=== PATIENT | male | born 1935 | race Caucasian/White ===

== ENCOUNTER 2019-12-16 19:13 | Emergency (ER) | payer OTHER, MEDICARE ==
[~2019-12-16] VITALS: Ht 177.8 cm; Wt 83.9 kg
[~2019-12-16 19:13] MED LIST: ACET325 PO; ALBU90OI INH; AMIO200 PO; ASCO500 PO; ASPI325; ASPI325 PO; ASPI81CH PO; BUPR150ER PO; BUPR75 PO; CIPR750 PO; Crutch1 EACH MISC; DAPTOMYCIN IV; DIGO.125 PO; FERR325 PO; HYDACE5 PO; LISI20 PO; LISI5 PO; METO50 PO; MIRT30 PO; MULVITMIND PO; OXYC5 PO; PRAZ2 PO; Percocet 5-3251 EACH PO; SALS500; SALS750 PO; SENN187 PO; SIMV10 PO; WHEELCHAIR USE; ZOLP10 PO
== END 2019-12-16 20:50 | disposition home or self-care (01) ==
LOC: ER 19:13
DX: S61.012A Laceration without foreign body of left thumb without damage to nail, initial encounter (principal); F17.200 Nicotine dependence, unspecified, uncomplicated; Z79.82 Long term (current) use of aspirin; Z79.899 Other long term (current) drug therapy; W26.0XXA Contact with knife, initial encounter
CPT/HCPCS: 99282

== ENCOUNTER 2021-08-29 09:01 | Emergency (ER) | payer OTHER ==
[~2021-08-29] VITALS: Ht 177.8 cm; Wt 81.7 kg
[2021-08-29 09:47] LABS: BASOPHILS ABSOLUTE AUTO 0.08 K/mm3 (0.00-0.23); BASOPHILS PERCENT AUTO 1 % (0-2); EOSINOPHILS ABSOLUTE AUTO 0.61 K/mm3 (0.00-0.68); EOSINOPHILS PERCENT AUTO 8 % (0-6); Hematocrit 32.1 % (37.0-53.0); Hemoglobin 10.3 g/dL (13.5-17.5); IMMATURE GRAN ABSOLUTE AUTO 0.02 K/mm3 (0.00-0.10); IMMATURE GRAN PERCENT AUTO 0 % (0-1); LYMPHOCYTES ABSOLUTE AUTO 1.37 K/mm3 (0.84-5.20); LYMPHOCYTES PERCENT AUTO 19 % (21-46); MONOCYTES ABSOLUTE AUTO 0.83 K/mm3 (0.16-1.47); MONOCYTES PERCENT AUTO 11 % (4-13); Mean Corpuscular HGB 32.1 pg (26.0-34.0); Mean Corpuscular HGB Conc 32.1 g/dL (31.5-36.5); Mean Corpuscular Volume 100 fL (80-100); Mean Platelet Volume 10.2 fL (9.1-12.4); NEUTROPHILS ABSOLUTE AUTO 4.42 K/mm3 (1.96-9.15); NEUTROPHILS PERCENT AUTO 60 % (41-73); Platelet Count 173 K/mm3 (150-400); RDW Coefficient Variation 13.9 % (11.7-14.2); Red Blood Cell Count 3.21 M/mm3 (4.30-5.90); White Blood Cell Count 7.33 K/mm3 (4.00-11.30)
[2021-08-29 09:55] LABS: Albumin, Blood 3.7 g/dL (3.4-5.0); Albumin/Globulin Ratio 0.9 (0.8-1.8); Bilirubin, Total 0.9 mg/dL (0.1-1.0); Bun/Creatinine Ratio 19.1 (12.0-20.0); Calcium, Blood 9.1 mg/dL (8.5-10.1); Creatinine, Blood 1.31 mg/dL (0.60-1.20); Globulin, Blood 4.1 g/dL (2.2-4.0); Potassium, Blood 3.8 mmol/L (3.5-5.5); Total Protein, Blood 7.8 g/dL (6.4-8.2)
[2021-08-29] MEDS ORDERED: AMLO5 PO (10:38)
[2021-08-29] MEDS ORDERED: DOCU100 PO (10:38)
[2021-08-29] MEDS ORDERED: CLOP75 PO (10:38)
[2021-08-29] MEDS ORDERED: DOXY100 PO (10:38)
[2021-08-29] MEDS ORDERED: Bisoprolol Fumar5 MG PO (10:38)
[2021-08-29] MEDS ORDERED: FINA5 (10:39)
[2021-08-29] MEDS ORDERED: LIDO700A20 TOP (10:39)
[2021-08-29] MEDS ORDERED: FISH OIL 1,2001 EAC7 PO (10:39)
[2021-08-29] MEDS ORDERED: MELA3 PO (10:40)
[2021-08-29] MEDS ORDERED: TAMS.4ER PO (10:40)
[2021-08-29] MEDS ORDERED: LISI5 PO (10:40)
[2021-08-29] MEDS ORDERED: ALBU90OI INH (12:37)
== END 2021-08-29 12:46 | disposition home or self-care (01) ==
LOC: ER 09:01
PROVIDERS: Student in an Organized Health Care Education/Training Program
DX: R07.9 Chest pain, unspecified (principal); R06.02 Shortness of breath; R06.2 Wheezing; R91.8 Other nonspecific abnormal finding of lung field; F17.210 Nicotine dependence, cigarettes, uncomplicated
CPT/HCPCS: 36415; 71045; 80053; 83880; 84484; 85025; 93005; 93010; 99284-25

== ENCOUNTER 2021-10-02 12:24 | Day surgery (SDC) | payer OTHER ==
[~2021-10-02] VITALS: Ht 177.8 cm; Wt 83.1 kg
[~2021-10-02 12:24] MED LIST changes: +AMLO5 PO; +Bisoprolol Fumar5 MG PO; +CEFD300 PO; +CLOP75 PO; +DELTASONE20 MG PO; +DOCU100 PO; +DOXY100 PO; +FINA5 PO; +FISH OIL 1,2001 EAC7 PO; +GUAI600T33 PO; +LIDO700A20 TOP; +MELA3 PO; +TAMS.4ER PO
--- NOTE | 2021-10-02 14:52 | NUR ---
10/02/21 1452 Doreen Ortega PT STATED UNDERSTANDING WITH DISCHARGE INSTRUCTIONS. PT STATES HE IS READY TO GO HOME.
[2021-10-06] MEDS ORDERED: ACETAMINOPHEN500 MG PO (10:42)
[2021-10-06] MEDS ORDERED: Roxicodone5 MG PO (10:42)
== END 2021-10-02 14:57 | disposition home or self-care (01) ==
LOC: ORSCSDS 12:24
PROVIDERS: Ophthalmology
PROC: 08RK3JZ Replacement of Left Lens with Synthetic Substitute, Percutaneous Approach (ICD-10-PCS; principal; 2021-10-02 14:15)
DX: H25.12 Age-related nuclear cataract, left eye (principal); H21.81 Floppy iris syndrome; I48.91 Unspecified atrial fibrillation; J61 Pneumoconiosis due to asbestos and other mineral fibers; I25.10 Atherosclerotic heart disease of native coronary artery without angina pectoris; F32.A Depression, unspecified; F43.10 Post-traumatic stress disorder, unspecified; E78.5 Hyperlipidemia, unspecified; I10 Essential (primary) hypertension; G47.33 Obstructive sleep apnea (adult) (pediatric); I73.9 Peripheral vascular disease, unspecified; Z86.73 Personal history of transient ischemic attack (TIA), and cerebral infarction without residual deficits; Z79.01 Long term (current) use of anticoagulants; Z79.899 Other long term (current) drug therapy
CPT/HCPCS: J2001; J2250; J3010; J3301; J7040; V2632

== ENCOUNTER 2021-11-24 17:25 | Emergency (ER) | payer OTHER ==
[~2021-11-24] VITALS: Ht 177.8 cm; Wt 79.4 kg
[~2021-11-24 17:25] MED LIST changes: +ACETAMINOPHEN500 MG PO; +Roxicodone5 MG PO
[2021-11-24 18:04] LABS: BASOPHILS ABSOLUTE AUTO 0.07 K/mm3 (0.00-0.23); BASOPHILS PERCENT AUTO 1 % (0-2); EOSINOPHILS ABSOLUTE AUTO 0.08 K/mm3 (0.00-0.68); EOSINOPHILS PERCENT AUTO 1 % (0-6); Hematocrit 33.7 % (37.0-53.0); Hemoglobin 10.9 g/dL (13.5-17.5); IMMATURE GRAN ABSOLUTE AUTO 0.02 K/mm3 (0.00-0.10); IMMATURE GRAN PERCENT AUTO 0 % (0-1); LYMPHOCYTES ABSOLUTE AUTO 0.86 K/mm3 (0.84-5.20); LYMPHOCYTES PERCENT AUTO 10 % (21-46); MONOCYTES ABSOLUTE AUTO 0.75 K/mm3 (0.16-1.47); MONOCYTES PERCENT AUTO 9 % (4-13); Mean Corpuscular HGB 30.6 pg (26.0-34.0); Mean Corpuscular HGB Conc 32.3 g/dL (31.5-36.5); Mean Corpuscular Volume 95 fL (80-100); NEUTROPHILS ABSOLUTE AUTO 6.73 K/mm3 (1.96-9.15); NEUTROPHILS PERCENT AUTO 79 % (41-73); Platelet Count 192 K/mm3 (150-400); RDW Coefficient Variation 15.9 % (11.7-14.2); RDW Standard Deviation 55.3 fL (35.1-46.3); Red Blood Cell Count 3.56 M/mm3 (4.30-5.90); White Blood Cell Count 8.51 K/mm3 (4.00-11.30)
[2021-11-24 18:56] LABS: Albumin, Blood 3.7 g/dL (3.4-5.0); Bilirubin, Total 0.8 mg/dL (0.1-1.0); Bun/Creatinine Ratio 16.4 (12.0-20.0); Calcium, Blood 9.4 mg/dL (8.5-10.1); Creatinine, Blood 1.46 mg/dL (0.60-1.20); Globulin, Blood 3.7 g/dL (2.2-4.0); Potassium, Blood 4.2 mmol/L (3.5-5.5); Total Protein, Blood 7.4 g/dL (6.4-8.2)
== END 2021-11-24 23:35 | disposition home or self-care (01) ==
LOC: ER 17:25
PROVIDERS: Physician Assistant
DX: J81.1 Chronic pulmonary edema (principal); I25.10 Atherosclerotic heart disease of native coronary artery without angina pectoris; G47.33 Obstructive sleep apnea (adult) (pediatric); I50.40 Unspecified combined systolic (congestive) and diastolic (congestive) heart failure; E78.5 Hyperlipidemia, unspecified; I48.91 Unspecified atrial fibrillation; F17.210 Nicotine dependence, cigarettes, uncomplicated; Z95.1 Presence of aortocoronary bypass graft; Z79.899 Other long term (current) drug therapy; Z79.52 Long term (current) use of systemic steroids
CPT/HCPCS: 71045; 80053; 83880; 84484; 85025; 93005; 93010